=== PATIENT | female | born 1960 | race African-American/Black ===

== ENCOUNTER → 2016-05-15 | Day surgery (SDC) | payer OTHER ==
--- NOTE | 2016-05-16 15:59 | PATH ---
Surgical Pathology Report Patient Name: NENA BRAUN [facility]. Rec. #: [id number] /Age/Gender: 1960 (Age: 55) / F Account: [id number] Location: [facility] Taken: 05/15/2016 Received: 05/15/2016 Reported: 05/16/2016 Physicians: Emre Aguirre M.D. Specimen(s) Received LEFT BREAST 1:30 7 FN CORE BIOPSY Clinical History Ultrasound findings: Suspicious Final Diagnosis BREAST, LEFT, 1:30 7 CM FN, CORE BIOPSY: BENIGN BREAST TISSUE SHOWING FIBROADENOMATOID CHANGE. Electronically Signed Patsy Garvey M.D. Gross Description Received in formalin labeled "left breast core biopsy 1:30, 7cmfn," are multiple gastelum fragments of fibroadipose tissue ranging from 0.5-1.0 cm in length and averaging 0.2 cm in diameter. The specimen is submitted in toto in one cassette. Time to formalin fixation: 2 minutes Total formalin fixation time: Approximately 7 hours. /05/16/2016 [facility]05/16/2016
== END | disposition home or self-care (01) ==
LOC: FRADUS-SUR 12:58
PROVIDERS: ATTEND Surgery
PROC: 0HBU3ZX Excision of Left Breast, Percutaneous Approach, Diagnostic (ICD-10-PCS; principal; 2016-05-15)
DX: N63 Unspecified lump in breast (principal)
CPT/HCPCS: 19083; 87899; 88305-TC; A4648; G0206-TC